=== PATIENT | female | born 1955 | race American Indian/Alaskan Native ===

== ENCOUNTER 2018-06-01 08:38 | Day surgery (SDC) | payer OTHER ==
[2018-05-24 09:31] VITALS: BMI 26.6
[2018-06-01] MEDS ORDERED: Propofol 10 mg/ml Inj (20 ML) ONE (10:24)
[2018-06-01] MEDS ORDERED: Midazolam 2 MG/2 ML VIAL ONE ×2 (10:25→12:59)
[2018-06-01] MEDS ORDERED: Lidocaine/Epinephrine 1% 1:100000 10 ML IJ ONE (12:14)
[2018-06-01] MEDS ORDERED: Bupivacaine 0.25% 20 ML INJ IJ ONE (12:18)
[2018-06-01] MEDS ORDERED: ceFAZolin 1 gm FROZEN Premix 2 GM/100 ML ML IVPB ONE (12:33)
--- NOTE | 2018-06-01 14:32 | PCM.SURG1 ---
Surgeon's Initial Post Op Note - Surgeon's Notes Surgeon: Arielle Rothman MD Transplant Nurse Practitioner: JAG Ramos Type of Anesthesia: General Endo Pre-Operative Diagnosis: Lipoma of Right leg, posteriorly. Large mole of Right thigh. Mole of Left upper back and left shoulder. Operative Findings: Intramuscular Lipoma of Right leg, posteriorly 3x3 cm. Large mole of Right thigh 1x1 cm. Mole of Left upper back 1x1 cm and left shoulder 1x1 cm Post-Operative Diagnosis: Intramuscular Lipoma of Right leg, posteriorly 3x3 cm. Large mole of Right thigh 1x1 cm. Mole of Left upper back 1x1 cm and left shoulder 1x1 cm Operation Performed: Exscision of Intramuscular Lipoma of Right leg, posteriorly 3x3 cm. Layered closure of Right leg wound 3x2x2 cm. WLE of Large mole of Right thigh 1x1 cm. WLE of Mole of Left upper back 1x1 cm. WLE of left shoulder 1x1 cm Specimen/Specimens Removed: Intramuscular Lipoma of Right leg. Mole of Right thigh. Mole of Left upper back and left shoulder Estimated Blood Loss: EBL {In ML}: 10 Blood Products Given: N/A Drains Used: No Drains Post-Op Condition: Good Date of Surgery/Procedure: 06/01/18 Time of Surgery/Procedure: 14:33
[2018-06-01 15:15] VITALS: BP 158/78; PULSE 56; RESP 18; TEMP 97; O2SAT 18
--- NOTE | 2018-06-02 00:56 | OP ---
Copied To: Tylor Rothman MD Attending MD: Tylor Rothman MD PROCEDURE DATE: 06/01/2018 PREOPERATIVE DIAGNOSES: 1. Lipoma of the right leg. 2. Mole of right thigh. 3. Mole of the left upper back and shoulder area. POSTOPERATIVE DIAGNOSES: 1. Lipoma of the right leg. 2. Mole of right thigh. 3. Mole of the left upper back and shoulder area. PROCEDURES DONE: 1. Excision of intramuscular lipoma of left posterior leg. 2. Wide local excision of the right thigh mole. 3. Wide local excision of left upper back mole. 4. Wide local excision of the left shoulder mole. 5. The layered closure of right leg wound, approximately 3 x 2 x 2 cm size. The first operation is excision of intramuscular lipoma of the right leg, 3 x 3 cm size. SURGEON: The operation was done by Tylor alcantar MD. E COMMERCE STRATEGIST: MITCH Ramos ANESTHESIA: Local anesthesia plus sedation. ESTIMATED BLOOD LOSS: Around 10 mL for all the procedure together. COMPLICATIONS: None. INTRAOPERATIVE FINDINGS: The patient had intramuscular lipoma of the right posterior leg inside the tendon sheath, approximately 3 x 3 cm size, and the patient had irregular mole on the right thigh, left upper back, and the left shoulder. DESCRIPTION OF PROCEDURE: On intraoperative steps, this is a 62-year-old female who was diagnosed with lipoma of the right leg as well as the mole of the right thigh and the upper back area. The patient was consented for the excision of the lipoma and the wide local excision of the mole and brought to the OR, placed supine on the operating table. After induction of the anesthesia, the patient was placed in prone position. The lipoma is on the right side. The right leg lipoma, right thigh mole, and the left upper back mole and the left shoulder mole was prepped and draped in the usual sterile fashion. First incision was made on the right leg. Upper and lower flap was created. The patient was found to have intramuscular lipoma deep into the sheath of the tendon, and the sheath of the tendon was excised and lipoma was completely removed. It was sent off the table for the pathology. The wound was irrigated and hemostasis was achieved. The wound was closed in multiple layer; the deep subcu and the tendon sheath with 3-0 Vicryl, another subcu with 3-0 Vicryl, and skin with 4-0 Monocryl. Dry sterile dressing was applied. Now, the wide local excision of the right thigh mole was done. The elliptical incision was made. Dissection was carried down deep up to the subcutaneous tissue, and the mole was completely excised. Wound was irrigated and wound was closed in two layers, subcu with 2-0 Vicryl, skin with 4-0 Monocryl, and dry sterile dressing was applied. The elliptical incision was made surrounding the left upper back mole and the mole was completely excised, and the wound was closed in two layers, the subcu with 3-0 Vicryl, skin with 4-0 Monocryl. Another elliptical incision was made surrounding the left shoulder mole, and the mole was completely excised, and it was sent off the table for the pathology. Hemostasis was achieved. The wound was closed in two layers, subcu with 3-0 Vicryl, skin with 4-0 Monocryl, and dry sterile dressing was applied at all the wound sites. The patient was reversed from sedation, sent to the postanesthesia care unit in stable condition. Tylor Rothman MD
== END 2018-06-01 15:26 | disposition home or self-care (01) ==
LOC: C.SDS 08:38
PROVIDERS: ATTEND Surgery Surgical Critical Care
DX: D17.9 Benign lipomatous neoplasm, unspecified (principal); D17.23 Benign lipomatous neoplasm of skin and subcutaneous tissue of right leg; L82.1 Other seborrheic keratosis; D17.1 Benign lipomatous neoplasm of skin and subcutaneous tissue of trunk; D22.9 Melanocytic nevi, unspecified
CPT/HCPCS: 11200; 11403; 82948; 88305; 88342; J0690; J2250; J2704; J3010